=== PATIENT | male | born 1945 | race African-American/Black ===

== ENCOUNTER 2019-04-07 11:22 | Inpatient (IN) | payer OTHER, MEDICARE ==
--- NOTE | 2019-04-07 11:51 | ER Document Report ---
ED Medical Screen (RME) - General Chief Complaint: Abnormal Lab Results Stated Complaint: ABNORMAL LABS Time Seen by Provider: 04/07/19 11:49 Mode of Arrival: Ambulatory Information source: Patient Notes: Male presented to ED for abnormal lab test. He states he went to the [facility] yesterday and had blood work done and they called him this morning sent to come to the emergency room because he was in renal failure. Patient is alert and oriented respirations regular nonlabored at this time. Patient states he is having pain in the right upper quadrant. He states he is not having any difficulty urinating. He states his urine is no different in color that he states we will get blood and urine and have him evaluated by the providers. I have greeted and performed a rapid initial assessment of this patient. A comprehensive ED assessment and evaluation of the patient, analysis of test results and completion of medical decision making process will be conducted by an additional ED providers. TRAVEL OUTSIDE OF THE [place] IN LAST 30 DAYS: No - Related Data Allergies/Adverse Reactions: No Known Allergies Allergy (Verified 04/07/19 11:31) Past Medical History - Social History Chew tobacco use (# tins/day): No Frequency of alcohol use: None Drug Abuse: None Physical Exam - Vital signs Vitals: Temp Pulse Resp BP Pulse Ox 98.0 F 82 20 172/74 H 100 04/07/19 11:24 04/07/19 11:24 04/07/19 11:24 04/07/19 11:24 04/07/19 11:24 Course - Vital Signs Vital signs: Temp Pulse Resp BP Pulse Ox 98.0 F 82 20 172/74 H 100 04/07/19 11:24 04/07/19 11:24 04/07/19 11:24 04/07/19 11:24 04/07/19 11:24
[2019-04-07 12:27] LABS: ABSOLUTE BASOPHILS # (AUTO) 0.1 10^3/uL (0.0-0.2); ABSOLUTE EOSINOPHILS # (AUTO) 0.2 10^3/uL (0.0-0.6); ABSOLUTE LYMPHOCYTES (AUTO) 0.5 10^3/uL (0.5-4.7); ABSOLUTE MONOCYTES (AUTO) 0.4 10^3/uL (0.1-1.4); ABSOLUTE NEUT (AUTO) 4.2 10^3/uL (1.7-8.2); BASOPHILS % (AUTO) 1.1 % (0-2); EOSINOPHILS % (AUTO) 3.1 % (0-6); HEMATOCRIT 24.8 % (37.9-51.0); HEMOGLOBIN 8.1 g/dL (13.5-17.0); LYMPHOCYTES % (AUTO) 9.7 % (13-45); MEAN CORPUSCULAR HGB CONC 32.6 g/dL (32.0-36.0); MEAN CORPUSCULAR VOLUME 95 fl (80-97); MONOCYTES % (AUTO) 7.7 % (3-13); PLATELET COUNT 148 10^3/uL (150-450); RED BLOOD COUNT 2.61 10^6/uL (4.35-5.55); RED CELL DISTRIBUTION WIDTH 15.5 % (11.5-14.0); SEGMENTED NEUTROPHILS % (AUTO) 78.4 % (42-78); TOTAL CELLS COUNTED % (AUTO) 100 %; WHITE BLOOD COUNT 5.3 10^3/uL (4.0-10.5)
[2019-04-07 12:33] LABS: APPEARANCE,URINE CLEAR; BILIRUBIN,URINE NEGATIVE (NEGATIVE); COLOR,URINE STRAW; GLUCOSE, URINE NEGATIVE (NEGATIVE); KETONES,URINE NEGATIVE (NEGATIVE); LEUKOCYTE ESTERASE,URINE TRACE (NEGATIVE); NITRITE,URINE NEGATIVE (NEGATIVE); PROTEIN,URINE NEGATIVE (NEGATIVE); URINE SPECIFIC GRAVITY 1.008; UROBILINOGEN,URINE NEGATIVE mg/dL (<2.0)
[2019-04-07] MEDS ORDERED: NORMAL SALINE 1000 ML 1,000 ML IV ONE (12:35)
[2019-04-07 12:46] LABS: ALBUMIN 4.1 g/dL (3.5-5.0); ALKALINE PHOSPHATASE 75 U/L (38-126); ANION GAP 13 (5-19); ASPARTATE AMINO TRANSFERASE 28 U/L (17-59); BILIRUBIN,DIRECT 0.3 mg/dL (0.0-0.4); BILIRUBIN,TOTAL 0.4 mg/dL (0.2-1.3); BLOOD UREA NITROGEN 69 mg/dL (7-20); CALCIUM 8.8 mg/dL (8.4-10.2); CARBON DIOXIDE 13 mmol/L (22-30); CHLORIDE 113 mmol/L (98-107); CREATINE KINASE 91 U/L (55-170); GLUCOSE 90 mg/dL (75-110); POTASSIUM 5.8 mmol/L (3.6-5.0); TOTAL PROTEIN 7.5 g/dL (6.3-8.2)
[2019-04-07] MEDS ORDERED: LIDOCAINE 2% URO-JET 5 ML KIT MM ONE (13:00)
[2019-04-07] MEDS ORDERED: SODIUM BICARBONATE 8.4% INJ 50 MEQ/50 ML DISP.SYRIN IV ONE (14:00)
[2019-04-07] MEDS ORDERED: CALCIUM GLUCONATE 1000 MG/10 ML INJ IV ONE (14:00)
[2019-04-07] MEDS ORDERED: TAMSULOSIN HCL 0.4 MG CAP.SR.24H PO ONE (14:03)
--- NOTE | 2019-04-07 14:17 | ER Document Report ---
ED General - General Chief Complaint: Abnormal Lab Results Stated Complaint: ABNORMAL LABS Time Seen by Provider: 04/07/19 11:49 Primary Care Provider: MARJ,TABBY [Primary Care Provider] - Follow up as needed Mode of Arrival: Ambulatory Notes: 73-year-old male sent to the emergency department by the [facility] after abnormal blood work returned. Patient had routine blood work performed yesterday and he was called today and told that he was in acute renal failure and he should emergently come to the hospital. Patient denies any symptoms, states that he is been urinating without difficulty, in fact states that he has been urinating multiple times at night. When questioned about his distended abdomen he states that his abdomen has looked like this for 6 months and denies abdominal pain. Denies any history of acute renal failure, leg swelling, congestive heart failure, nausea, vomiting, diarrhea. TRAVEL OUTSIDE OF THE [place] IN LAST 30 DAYS: No - Related Data Allergies/Adverse Reactions: No Known Allergies Allergy (Verified 04/07/19 11:31) Past Medical History - General Information source: Patient - Social History Smoking Status: Current Every Day Smoker Chew tobacco use (# tins/day): No Frequency of alcohol use: None Drug Abuse: None Family History: Reviewed & Not Pertinent Patient has suicidal ideation: No Patient has homicidal ideation: No - Past Medical History Cardiac Medical History: Reports: Hx Hypercholesterolemia, Hx Hypertension Psychiatric Medical History: Reports: Hx Depression Review of Systems - Review of Systems Constitutional: No symptoms reported Gastrointestinal: See HPI Genitourinary: See HPI Hematologic/Lymphatic: See HPI -: Yes All other systems reviewed and negative Physical Exam - Vital signs Vitals: Temp Pulse Resp BP Pulse Ox 98.0 F 82 20 172/74 H 100 04/07/19 11:24 04/07/19 11:24 04/07/19 11:24 04/07/19 11:24 04/07/19 11:24 Interpretation: Hypertensive - Notes Notes: GENERAL: Alert, interacts well. No acute distress. HEAD: Normocephalic, atraumatic EYES: Pupils equal, round and reactive to light, extraocular movements intact. ENT: Oral mucosa moist, tongue midline. NECK: Full range of motion, supple, trachea midline. LUNGS: Clear to auscultation bilaterally, no wheezes, rales or rhonchi, no respiratory distress. HEART: Regular rate and rhythm, no murmurs, gallops, rubs. ABDOMEN: Firm, distended, actually appears to be approximately 6 months , bladder is distended above the level of the umbilicus, surprisingly nontender, no fluid wave, bedside ultrasound confirms that this mass is bladder, bowel sounds present in all 4 quadrants. EXTREMITIES: Moves all 4 extremities spontaneously, no edema, radial and dorsalis pedis pulses 2/4 bilaterally. No cyanosis. NEUROLOGICAL: Alert and oriented x3, normal speech, biceps and patellar DTRs 2+ bilaterally. PSYCH: Normal mood, normal affect. SKIN: Warm, Dry, normal turgor, no rashes or lesions noted. Course - Re-evaluation Re-evalutation: 04/07/19 14:17 CBC shows anemia with hemoglobin 8.1, platelets low 148, no leukocytosis, CMP shows potassium elevated at 5.3, CO2 low at 13, BUN and creatinine elevated at 69 and 7.44, lipase elevated at 485, urinalysis shows trace leukocyte esterase. Meade catheter was inserted and close to 2 L of clear yellow urine were obtained. We did have to use it daily as we did encounter some resistance trying to insert a 14 Swazi catheter. Suspect the obstruction is coming from an enlarged prostate, I have started Flomax. Suspect that this patient's renal failure is due to the urinary obstruction. I did do a bedside ultrasound that confirmed moderate to severe hydronephrosis as well. Suspect this is coming from the bladder and I suspect this is been going on for quite some time as his bladder is quite enlarged. Patient will be given bicarb and calcium to decrease his potassium. I also expect his potassium to come down as we drain his bladder and his renal function improves. Discussed the patient with Dr. Gonzalez and CONSTANCE alicia who agreed to admit the patient to their service on the telemetry care unit. Patient is aware that although he does not need dialysis right now if his function does not improve with bladder decompression as expected then he may need dialysis and may need to be transferred at some point. Patient is agreeable to admission here. 04/07/19 14:18 I am also ordering a CAT scan with oral contrast to make sure that we are not missing any obstructing tumor in the abdomen. - Vital Signs Vital signs: Temp Pulse Resp BP Pulse Ox 97.8 F 82 13 176/91 H 100 04/07/19 12:07 04/07/19 11:24 04/07/19 13:20 04/07/19 13:20 04/07/19 13:20 - Laboratory Result Diagrams: 04/07/19 12:05 04/07/19 12:05 Laboratory results interpreted by me: 04/07/19 04/07/19 04/07/19 12:05 12:05 12:20 RBC 2.61 L Hgb 8.1 L Hct 24.8 L RDW 15.5 H Plt Count 148 L Lymph % (Auto) 9.7 L Seg Neutrophils % 78.4 H Potassium 5.8 H Chloride 113 H Carbon Dioxide 13 L BUN 69 H Creatinine 7.44 H Est GFR ( Amer) 9 L Est GFR (MDRD) Non-Af 7 L Lipase 485.0 H Ur Leukocyte Esterase TRACE H - EKG Interpretation by Me Additional EKG results interpreted by me: 04/07/19 14:19 EKG shows sinus rhythm at a rate of 79, normal axis, normal intervals, no ST segment elevations or depressions, no T wave inversions however T waves are slightly peaked per my interpretation. Discharge - Discharge Clinical Impression: Acute urinary obstruction, Hyperkalemia Acute renal failure Qualifiers: Acute renal failure type: unspecified Qualified Code(s): N17.9 - Acute kidney failure, unspecified Anemia Qualifiers: Anemia type: unspecified type Qualified Code(s): D64.9 - Anemia, unspecified Condition: Good Disposition: ADMITTED INPATIENT Admitting Provider: Carlos (Hospitalist) Unit Admitted: Telemetry [facility] [[facility]] - Follow up as needed
[2019-04-07] MEDS ORDERED: ONDANSETRON 4 MG TAB.RAPDIS PO PRN (14:33)
[2019-04-07] MEDS ORDERED: ONDANSETRON HCL INJ/PF 4 MG/2 ML SDV IV PRN (14:33)
[2019-04-07] MEDS ORDERED: OXYCODONE-ACETAMINOPHEN 5-325 MG TABLET PO PRN (14:33)
[2019-04-07] MEDS ORDERED: ACETAMINOPHEN 325 MG TABLET PO PRN (14:33)
--- NOTE | 2019-04-07 14:55 | PDOC H&P ---
History of Present Illness Admission Date/PCP: [facility] 04/07/2019 History of Present Illness: YOU FOSTER JR is a 73 year old male who was admitted from the emergency room with abdominal pain for 3 to 5 months and probable bladder outlet obstruction. He states she went to the [facility] yesterday for just a routine visit, although he states for the last 3 to 5 months he said some right flank pain. States they called him today and told him to go to the emergency room because of some of his lab work according to the patient they did not mention anything yesterday during the examination. Patient states he feels like his abdomen is been swollen now for about 3 to 5 months. In the emergency room after putting a Meade catheter in place they drained 1700 cc of yellow clear urine Patient denies ever having any renal problem before today. Patient's other medical problems include hepatitis C diagnosed in 2010 and treated in 2014. Patient's only medication includes medicine for depression, Celexa.. Past Medical History Cardiac Medical History: Reports: Hyperlipidema, Hypertension Endocrine Medical History: Reports: Other - Otitis he Psychiatric Medical History: Reports: Depression Social History Smoking Status: Current Every Day Smoker Electronic Cigarette use?: No - Advance Directive Resuscitation Status: Full Code Family History Family History: Reviewed & Not Pertinent Parental Family History Reviewed: No Children Family History Reviewed: No Sibling(s) Family History Reviewed.: No Medication/Allergy Allergies/Adverse Reactions: No Known Allergies Allergy (Verified 04/07/19 11:31) Review of Systems Constitutional: ABSENT: chills, fever(s), headache(s), weight gain, weight loss Cardiovascular: ABSENT: chest pain, dyspnea on exertion, edema, orthropnea, palpitations Respiratory: ABSENT: cough, hemoptysis Gastrointestinal: PRESENT: abdominal pain Neurological: ABSENT: abnormal gait, abnormal speech, confusion, dizziness, focal weakness, syncope Psychiatric: ABSENT: anxiety, depression, homidical ideation, suicidal ideation Physical Exam Vital Signs: Temp Pulse Resp BP Pulse Ox 97.8 F 82 13 176/91 H 100 04/07/19 12:07 04/07/19 11:24 04/07/19 13:20 04/07/19 13:20 04/07/19 13:20 Intake & Output 04/06/19 04/07/19 04/08/19 06:59 06:59 06:59 Intake Total 1000 Balance 1000 Weight 70.4 kg General appearance: PRESENT: no acute distress, well-developed, well-nourished Head exam: PRESENT: atraumatic, normocephalic Respiratory exam: PRESENT: clear to auscultation sabrina. ABSENT: rales, rhonchi, wheezes Cardiovascular exam: PRESENT: RRR. ABSENT: diastolic murmur, rubs, systolic murmur GI/Abdominal exam: PRESENT: distended, firm, tenderness - Slightly tender over the suprapubic region and the right lower quadrant Patient's abdominal distention extends up to the umbilicus, other - Patient's distention extends up to the umbilicus Neurological exam: PRESENT: alert, awake, oriented to person, oriented to place, oriented to time, oriented to situation, CN II-XII grossly intact. ABSENT: motor sensory deficit Psychiatric exam: PRESENT: appropriate affect, normal mood. ABSENT: homicidal ideation, suicidal ideation Results Laboratory Results: 04/07/19 12:05 04/07/19 12:05 04/07/19 04/07/19 04/07/19 12:05 12:05 12:05 WBC 5.3 RBC 2.61 L Hgb 8.1 L Hct 24.8 L MCV 95 MCH 31.0 MCHC 32.6 RDW 15.5 H Plt Count 148 L Seg Neutrophils % 78.4 H Sodium 138.5 Potassium 5.8 H Chloride 113 H Carbon Dioxide 13 L Anion Gap 13 BUN 69 H Creatinine 7.44 H Est GFR ( Amer) 9 L Glucose 90 Calcium 8.8 Magnesium 1.6 Total Bilirubin 0.4 AST 28 Alkaline Phosphatase 75 Total Protein 7.5 Albumin 4.1 Lipase 485.0 H Urine Color Urine Appearance Urine pH Ur Specific [place] Urine Protein Urine Glucose (UA) Urine Ketones Urine Blood Urine Nitrite Ur Leukocyte Esterase Urine WBC (Auto) Urine RBC (Auto) Blood Type B POSITIVE Antibody Screen NEGATIVE 04/07/19 12:20 WBC RBC Hgb Hct MCV MCH MCHC RDW Plt Count Seg Neutrophils % Sodium Potassium Chloride Carbon Dioxide Anion Gap BUN Creatinine Est GFR ( Amer) Glucose Calcium Magnesium Total Bilirubin AST Alkaline Phosphatase Total Protein Albumin Lipase Urine Color STRAW Urine Appearance CLEAR Urine pH 6.0 Ur Specific [place] 1.008 Urine Protein NEGATIVE Urine Glucose (UA) NEGATIVE Urine Ketones NEGATIVE Urine Blood NEGATIVE Urine Nitrite NEGATIVE Ur Leukocyte Esterase TRACE H Urine WBC (Auto) 7 Urine RBC (Auto) 2 Blood Type Antibody Screen 04/07/19 04/07/19 12:05 12:05 Creatine Kinase 91 CK-MB (CK-2) 1.39 Assessment and Plan - Diagnosis (1) Hepatitis C Is this a current diagnosis for this admission?: Yes (2) Depression Is this a current diagnosis for this admission?: Yes (3) Acute renal failure Qualifiers: Acute renal failure type: unspecified Qualified Code(s): N17.9 - Acute kidney failure, unspecified Is this a current diagnosis for this admission?: Yes (4) Acute urinary obstruction Is this a current diagnosis for this admission?: Yes (5) Anemia Qualifiers: Anemia type: unspecified type Qualified Code(s): D64.9 - Anemia, unspecified Is this a current diagnosis for this admission?: Yes (6) Hyperkalemia Is this a current diagnosis for this admission?: Yes - Plan Summary Summary: 04/07/2019 Patient will leave the Meade catheter in place. Patient will receive IV fluids calcium gluconate and sodium bicarb as needed. Patient is to get a CT scan of his abdomen and pelvis with oral contrast only as ordered by the ER. Only medication that he takes appears to be Celexa 20 mg a day no previous records to compare to. - Time Time Spent with patient: 25-34 minutes
[2019-04-07 15:06] LABS: APPEARANCE,URINE CLEAR; BILIRUBIN,URINE NEGATIVE (NEGATIVE); COLOR,URINE STRAW; GLUCOSE, URINE NEGATIVE (NEGATIVE); KETONES,URINE NEGATIVE (NEGATIVE); LEUKOCYTE ESTERASE,URINE TRACE (NEGATIVE); NITRITE,URINE NEGATIVE (NEGATIVE); PROTEIN,URINE NEGATIVE (NEGATIVE); URINE SPECIFIC GRAVITY 1.006; UROBILINOGEN,URINE NEGATIVE mg/dL (<2.0)
[2019-04-07 15:09] LABS: INTERNATIONAL RATION (INR) 1.15; PROTHROMBIN TIME 14.8 SEC (11.4-15.4)
--- NOTE | 2019-04-07 17:06 | RADIOLOGY REPORT (SQ) ---
EXAM DESCRIPTION: CT ABD/PELVIS ORAL ONLY COMPLETED DATE/TIME: 04/07/2019 4:52 pm REASON FOR STUDY: RLQ pain; possible tumor obstructing ureters COMPARISON: None. TECHNIQUE: CT scan of the abdomen and pelvis performed without intravenous or oral contrast. Images reviewed with lung, soft tissue, and bone windows. Reconstructed coronal and sagittal MPR images revi ewed. All images stored on PACS. All CT scanners at this facility use dose modulation, iterative reconstruction, and/or weight based d osing when appropriate to reduce radiation dose to as low as reasonably achievable (ALARA). [facility]: Dose Right [facility]: CareDose [facility]: Dose Right [facility]: Teradose 4D [facility]: Smart Technologies RADIATION DOSE: CT Rad equipment meets quality standard of care and radiation dose reduction techniq ues were employed. CTDIvol: 4.8 mGy. DLP: 268 mGy-cm.mGy. LIMITATIONS: None. FINDINGS: LOWER CHEST: Minimal scarring left posterior costophrenic sulcus. NON-CONTRASTED LIVER, SPLEEN, ADRENALS: Evaluation limited by lack of IV contrast. No identified sign ificant masses. PANCREAS: No masses. No peripancreatic inflammatory changes. GALLBLADDER: No identified stones by CT criteria. No inflammatory changes to suggest cholecystitis. RIGHT KIDNEY AND URETER: There is massive right hydronephrosis and hydroureter down to the level of t he bladder. No significant calcifications. No right renal cysts or masses. LEFT KIDNEY AND URETER: There is massive left hydronephrosis and hydroureter down to the level of the bladder. No significant calcifications. No left renal cysts or masses. AORTA AND RETROPERITONEUM: No aneurysm. No retroperitoneal masses or adenopathy. BOWEL AND PERITONEAL CAVITY: Patient drank oral contrast. No bowel obstruction. No free intraperito david air or fluid. APPENDIX: Normal. PELVIS, BLADDER, AND ABDOMINAL WALL:Patient has a Meade catheter draining the bladder. Small amount of air in the urinary bladder. Urinary bladder is abnormal, with massive bladder wall thickening gre ater than 2 cm in thickness. This is circumferential and involves the bladder trigone. Prostate 5.5 x 4.5 x 7 cm in size. Normal size seminal vesicles. No bulky pelvic adenopathy BONES: No acute changes. Left hip lag screws for healed subcapital femoral neck fracture. OTHER: No other significant finding. IMPRESSION: Massive bladder wall thickening with massive bilateral hydronephrosis and hydroureter fr om chronic urinary outflow obstruction. Findings discussed with Dr. Ramirez in the emergency room COMMENT: Quality ID # [id number]: Final reports with documentation of one or more dose reduction techniques (e.g., Automated exposure control, adjustment of the mA and/or kV according to patient size, use of iterative reconstruction technique) TECHNICAL DOCUMENTATION: JOB ID: [id number] [employer]- All Rights Reserved Reading location - IP/workstation name: [facility]
[2019-04-07] MEDS ORDERED: ZOLPIDEM TARTRATE 5 MG TABLET PO PRN (18:50)
--- NOTE | 2019-04-07 21:50 | EKG REPORT ---
SEVERITY:- BORDERLINE ECG - SINUS RHYTHM PROBABLE LEFT ATRIAL ABNORMALITY : Confirmed by: Yue Horton MD 07-Apr-2019 21:49:32
[2019-04-07] MEDS ORDERED: FAMOTIDINE 20 MG TABLET PO SCH (22:00)
[2019-04-07] MEDS: CEFTRIAXONE 1 GM/D5W RTU 1 GM/50 ML RTUPB IV SCH (22:05)
[2019-04-07] MEDS: HEPARIN SOD (PORCINE) 5,000 UNIT/ML 1 ML VIAL SUBCUT SCH (22:07)
[2019-04-07] MEDS: NORMAL SALINE 1000 ML 1,000 ML IV PRN (22:07)
[2019-04-07] MEDS: CITALOPRAM HYDROBROMIDE 20 MG TABLET PO SCH (22:07)
[2019-04-08 04:47] LABS: ABSOLUTE EOSINOPHILS # (AUTO) 0.2 10^3/uL (0.0-0.6); ABSOLUTE LYMPHOCYTES (AUTO) 0.6 10^3/uL (0.5-4.7); ABSOLUTE MONOCYTES (AUTO) 0.5 10^3/uL (0.1-1.4); ABSOLUTE NEUT (AUTO) 4.5 10^3/uL (1.7-8.2); BASOPHILS % (AUTO) 0.5 % (0-2); HEMATOCRIT 21.8 % (37.9-51.0); LYMPHOCYTES % (AUTO) 9.9 % (13-45); MEAN CORPUSCULAR HEMOGLOBIN 31.1 pg (27.0-33.4); MEAN CORPUSCULAR HGB CONC 33.4 g/dL (32.0-36.0); MEAN CORPUSCULAR VOLUME 93 fl (80-97); MONOCYTES % (AUTO) 8.9 % (3-13); PLATELET COUNT 134 10^3/uL (150-450); RED BLOOD COUNT 2.35 10^6/uL (4.35-5.55); RED CELL DISTRIBUTION WIDTH 14.9 % (11.5-14.0); SEGMENTED NEUTROPHILS % (AUTO) 77.7 % (42-78); TOTAL CELLS COUNTED % (AUTO) 100 %; WHITE BLOOD COUNT 5.8 10^3/uL (4.0-10.5)
[2019-04-08 04:56] LABS: HEMOGLOBIN 7.3 g/dL (13.5-17.0)
[2019-04-08 05:05] LABS: ANION GAP 10 (5-19); BLOOD UREA NITROGEN 67 mg/dL (7-20); CALCIUM 8.3 mg/dL (8.4-10.2); CARBON DIOXIDE 13 mmol/L (22-30); CHLORIDE 118 mmol/L (98-107); GLUCOSE 91 mg/dL (75-110); POTASSIUM 5.6 mmol/L (3.6-5.0)
[2019-04-08] MEDS: HEPARIN SOD (PORCINE) 5,000 UNIT/ML 1 ML VIAL SUBCUT SCH ×3 (05:26→21:03)
[2019-04-08] MEDS: NORMAL SALINE 1000 ML 1,000 ML IV PRN ×3 (05:31→21:09)
[2019-04-08] MEDS ORDERED: INFLUENZA QUAD (6MOS+) 2019-20 VAC 0.5 ML SYR IM ONE (08:00)
--- NOTE | 2019-04-08 10:54 | PDOC PROGRESS REPORT ---
Subjective Progress Note for:: 04/08/19 Subjective:: 04/08/2019 patient is feeling much better having almost no abdominal pain. Doing bladder irrigation every 4 hours, urine blood-tinged but no clots Reason For Visit: URINARY OBSTRUCTION, DEPRESSION, ABDOMINAL PAIN Physical Exam Vital Signs: Temp Pulse Resp BP Pulse Ox 97.8 F 76 13 176/91 H 100 04/07/19 12:07 04/08/19 07:00 04/07/19 13:20 04/07/19 13:20 04/07/19 13:20 Intake & Output 04/07/19 04/08/19 04/09/19 06:59 06:59 06:59 Intake Total 2350 Output Total 1250 Balance 1100 Weight 67.8 kg General appearance: PRESENT: no acute distress Respiratory exam: PRESENT: clear to auscultation sabrina. ABSENT: rales, rhonchi, wheezes Cardiovascular exam: PRESENT: RRR. ABSENT: diastolic murmur, rubs, systolic murmur GI/Abdominal exam: PRESENT: normal bowel sounds, soft, other - No tenderness to palpation at all. ABSENT: distended, guarding, mass, organolmegaly, rebound, tenderness Neurological exam: PRESENT: alert, awake, oriented to person, oriented to place, oriented to time, oriented to situation, CN II-XII grossly intact. ABSENT: motor sensory deficit Psychiatric exam: PRESENT: appropriate affect, normal mood. ABSENT: homicidal ideation, suicidal ideation Results Laboratory Results: 04/08/19 03:56 04/08/19 03:56 04/07/19 04/07/19 04/07/19 12:05 12:05 12:05 WBC 5.3 RBC 2.61 L Hgb 8.1 L Hct 24.8 L MCV 95 MCH 31.0 MCHC 32.6 RDW 15.5 H Plt Count 148 L Seg Neutrophils % 78.4 H Sodium 138.5 Potassium 5.8 H Chloride 113 H Carbon Dioxide 13 L Anion Gap 13 BUN 69 H Creatinine 7.44 H Est GFR ( Amer) 9 L Glucose 90 Calcium 8.8 Magnesium 1.6 Total Bilirubin 0.4 AST 28 Alkaline Phosphatase 75 Total Protein 7.5 Albumin 4.1 Lipase 485.0 H Urine Color Urine Appearance Urine pH Ur Specific [place] Urine Protein Urine Glucose (UA) Urine Ketones Urine Blood Urine Nitrite Ur Leukocyte Esterase Urine WBC (Auto) Urine RBC (Auto) Blood Type B POSITIVE Antibody Screen NEGATIVE 04/07/19 04/07/19 04/08/19 12:20 14:40 03:56 WBC 5.8 RBC 2.35 L Hgb 7.3 L Hct 21.8 L MCV 93 MCH 31.1 MCHC 33.4 RDW 14.9 H Plt Count 134 L Seg Neutrophils % 77.7 Sodium Potassium Chloride Carbon Dioxide Anion Gap BUN Creatinine Est GFR ( Amer) Glucose Calcium Magnesium Total Bilirubin AST Alkaline Phosphatase Total Protein Albumin Lipase Urine Color STRAW STRAW Urine Appearance CLEAR CLEAR Urine pH 6.0 6.0 Ur Specific [place] 1.008 1.006 Urine Protein NEGATIVE NEGATIVE Urine Glucose (UA) NEGATIVE NEGATIVE Urine Ketones NEGATIVE NEGATIVE Urine Blood NEGATIVE SMALL H Urine Nitrite NEGATIVE NEGATIVE Ur Leukocyte Esterase TRACE H TRACE H Urine WBC (Auto) 7 7 Urine RBC (Auto) 2 2 Blood Type Antibody Screen 04/08/19 03:56 WBC RBC Hgb Hct MCV MCH MCHC RDW Plt Count Seg Neutrophils % Sodium 140.5 Potassium 5.6 H Chloride 118 H Carbon Dioxide 13 L Anion Gap 10 BUN 67 H Creatinine 6.84 H Est GFR ( Amer) 10 L Glucose 91 Calcium 8.3 L Magnesium Total Bilirubin AST Alkaline Phosphatase Total Protein Albumin Lipase Urine Color Urine Appearance Urine pH Ur Specific [place] Urine Protein Urine Glucose (UA) Urine Ketones Urine Blood Urine Nitrite Ur Leukocyte Esterase Urine WBC (Auto) Urine RBC (Auto) Blood Type Antibody Screen 04/07/19 04/07/19 12:05 12:05 Creatine Kinase 91 CK-MB (CK-2) 1.39 Assessment and Plan - Diagnosis (1) Hepatitis C Is this a current diagnosis for this admission?: Yes (2) Depression Is this a current diagnosis for this admission?: Yes (3) Acute renal failure Qualifiers: Acute renal failure type: unspecified Qualified Code(s): N17.9 - Acute kidney failure, unspecified Is this a current diagnosis for this admission?: Yes (4) Acute urinary obstruction Is this a current diagnosis for this admission?: Yes (5) Anemia Qualifiers: Anemia type: unspecified type Qualified Code(s): D64.9 - Anemia, unspecified Is this a current diagnosis for this admission?: Yes (6) Hyperkalemia Is this a current diagnosis for this admission?: Yes - Plan Summary Summary: 04/07/2019 Patient will leave the Meade catheter in place. Patient will receive IV fluids calcium gluconate and sodium bicarb as needed. Patient is to get a CT scan of his abdomen and pelvis with oral contrast only as ordered by the ER. Only medication that he takes appears to be Celexa 20 mg a day no previous records to compare to. 04/08/2019 intake yesterday 2350 output 1250, however patient did have she will 1700 out yesterday after the Meade catheter was inserted, therefore output should be 2950 Weight on admission was 70.4 kg today it is 67.8 CBC shows a hemoglobin on admission 8.1 today 7.3 patient is not symptomatic. BUN and creatinine are basically the same although creatinine is slightly improved now down to 6.84 Patient getting normal saline at 150 an hour Patient will get a bladder scan every 4 hours prior to bladder irrigation - Time Time Spent with patient: 25-34 minutes
[2019-04-08] MEDS: CEFTRIAXONE 1 GM/D5W RTU 1 GM/50 ML RTUPB IV SCH (17:07)
[2019-04-08 19:07] LABS: ANION GAP 10 (5-19); BLOOD UREA NITROGEN 61 mg/dL (7-20); CALCIUM 7.8 mg/dL (8.4-10.2); CARBON DIOXIDE 14 mmol/L (22-30); CHLORIDE 113 mmol/L (98-107); GLUCOSE 115 mg/dL (75-110)
[2019-04-08] MEDS: CITALOPRAM HYDROBROMIDE 20 MG TABLET PO SCH (21:06)
[2019-04-09] MEDS: HEPARIN SOD (PORCINE) 5,000 UNIT/ML 1 ML VIAL SUBCUT SCH ×3 (05:05→21:06)
[2019-04-09] MEDS: NORMAL SALINE 1000 ML 1,000 ML IV PRN ×2 (06:38→15:11)
--- NOTE | 2019-04-09 12:03 | PDOC PROGRESS REPORT ---
Subjective Progress Note for:: 04/09/19 Subjective:: 04/08/2019 patient is feeling much better having almost no abdominal pain. Doing bladder irrigation every 4 hours, urine blood-tinged but no clots 04/09/2019 patient's renal function is improving with IV fluids and a Meade catheter Continue IV fluids, DC bladder irrigation every 4 hours and DC bladder scan Reason For Visit: URINARY OBSTRUCTION, DEPRESSION, ABDOMINAL PAIN Physical Exam Vital Signs: Temp Pulse Resp BP Pulse Ox 98.1 F 88 18 123/60 100 04/09/19 08:00 04/09/19 08:00 04/09/19 08:00 04/09/19 08:00 04/09/19 08:00 Intake & Output 04/08/19 04/09/19 04/10/19 06:59 06:59 06:59 Intake Total 2350 5594 Output Total 1250 4250 Balance 1100 1344 Weight 67.8 kg 70 kg General appearance: PRESENT: no acute distress Respiratory exam: PRESENT: clear to auscultation sabrina. ABSENT: rales, rhonchi, wheezes Cardiovascular exam: PRESENT: RRR. ABSENT: diastolic murmur, rubs, systolic murmur GI/Abdominal exam: PRESENT: normal bowel sounds, soft. ABSENT: distended, guarding, mass, organolmegaly, rebound, tenderness Gentrourinary exam: PRESENT: other - Catheter draining pink-colored urine no large clots Neurological exam: PRESENT: alert, awake, oriented to person, oriented to place, oriented to time, oriented to situation, CN II-XII grossly intact. ABSENT: motor sensory deficit Psychiatric exam: PRESENT: appropriate affect, normal mood, other - Patient pleasant and appreciative of his care. ABSENT: homicidal ideation, suicidal ideation Results Laboratory Results: 04/08/19 03:56 04/08/19 18:21 04/08/19 18:21 Sodium 136.9 L Potassium 5.0 Chloride 113 H Carbon Dioxide 14 L Anion Gap 10 BUN 61 H Creatinine 5.82 H Est GFR ( Amer) 12 L Glucose 115 H Calcium 7.8 L 04/07/19 04/07/19 12:05 12:05 Creatine Kinase 91 CK-MB (CK-2) 1.39 Assessment and Plan - Diagnosis (1) Hepatitis C Is this a current diagnosis for this admission?: Yes (2) Depression Is this a current diagnosis for this admission?: Yes (3) Acute renal failure Qualifiers: Acute renal failure type: unspecified Qualified Code(s): N17.9 - Acute kidney failure, unspecified Is this a current diagnosis for this admission?: Yes (4) Acute urinary obstruction Is this a current diagnosis for this admission?: Yes (5) Anemia Qualifiers: Anemia type: unspecified type Qualified Code(s): D64.9 - Anemia, unspecified Is this a current diagnosis for this admission?: Yes (6) Hyperkalemia Is this a current diagnosis for this admission?: Yes - Plan Summary Summary: 04/07/2019 Patient will leave the Meade catheter in place. Patient will receive IV fluids calcium gluconate and sodium bicarb as needed. Patient is to get a CT scan of his abdomen and pelvis with oral contrast only as ordered by the ER. Only medication that he takes appears to be Celexa 20 mg a day no previous records to compare to. 04/08/2019 intake yesterday 2350 output 1250, however patient did have she will 1700 out yesterday after the Meade catheter was inserted, therefore output should be 2950 Weight on admission was 70.4 kg today it is 67.8 CBC shows a hemoglobin on admission 8.1 today 7.3 patient is not symptomatic. BUN and creatinine are basically the same although creatinine is slightly improved now down to 6.84 Patient getting normal saline at 150 an hour Patient will get a bladder scan every 4 hours prior to bladder irrigation 04/09/2019 I discussed this briefly with nephrology. he is improving with IV fluids renal functions are improving, DC with Meade catheter [facility] he can set up an appointment with a urologist as an outpatient. Continue IV fluids for the next 24 to 48 hours. - Time Time Spent with patient: 25-34 minutes
[2019-04-09] MEDS: CEFTRIAXONE 1 GM/D5W RTU 1 GM/50 ML RTUPB IV SCH (18:11)
[2019-04-09 19:45] LABS: ABSOLUTE EOSINOPHILS # (AUTO) 0.2 10^3/uL (0.0-0.6); ABSOLUTE LYMPHOCYTES (AUTO) 0.6 10^3/uL (0.5-4.7); ABSOLUTE MONOCYTES (AUTO) 0.6 10^3/uL (0.1-1.4); ABSOLUTE NEUT (AUTO) 3.7 10^3/uL (1.7-8.2); BASOPHILS % (AUTO) 0.5 % (0-2); EOSINOPHILS % (AUTO) 3.5 % (0-6); HEMATOCRIT 19.5 % (37.9-51.0); MEAN CORPUSCULAR HEMOGLOBIN 31.1 pg (27.0-33.4); MEAN CORPUSCULAR HGB CONC 33.7 g/dL (32.0-36.0); MEAN CORPUSCULAR VOLUME 92 fl (80-97); MONOCYTES % (AUTO) 11.2 % (3-13); PLATELET COUNT 120 10^3/uL (150-450); RED BLOOD COUNT 2.11 10^6/uL (4.35-5.55); RED CELL DISTRIBUTION WIDTH 14.9 % (11.5-14.0); SEGMENTED NEUTROPHILS % (AUTO) 72.8 % (42-78); TOTAL CELLS COUNTED % (AUTO) 100 %; WHITE BLOOD COUNT 5.1 10^3/uL (4.0-10.5)
[2019-04-09 19:48] LABS: HEMOGLOBIN 6.6 g/dL (13.5-17.0)
[2019-04-09 20:03] LABS: ANION GAP 9 (5-19); BLOOD UREA NITROGEN 58 mg/dL (7-20); CALCIUM 7.5 mg/dL (8.4-10.2); CARBON DIOXIDE 14 mmol/L (22-30); CHLORIDE 114 mmol/L (98-107); GLUCOSE 102 mg/dL (75-110); POTASSIUM 5.3 mmol/L (3.6-5.0)
[2019-04-09] MEDS ORDERED: DIPHENHYDRAMINE HCL 50 MG/ML VIAL IV ONE (20:15)
[2019-04-09] MEDS ORDERED: ACETAMINOPHEN 325 MG TABLET PO ONE (20:15)
[2019-04-09] MEDS: CITALOPRAM HYDROBROMIDE 20 MG TABLET PO SCH (21:15)
[2019-04-10] MEDS: HEPARIN SOD (PORCINE) 5,000 UNIT/ML 1 ML VIAL SUBCUT SCH ×3 (05:17→21:20)
[2019-04-10 06:31] LABS: ABSOLUTE EOSINOPHILS # (AUTO) 0.2 10^3/uL (0.0-0.6); ABSOLUTE LYMPHOCYTES (AUTO) 0.7 10^3/uL (0.5-4.7); ABSOLUTE MONOCYTES (AUTO) 0.5 10^3/uL (0.1-1.4); ABSOLUTE NEUT (AUTO) 3.5 10^3/uL (1.7-8.2); EOSINOPHILS % (AUTO) 3.6 % (0-6); HEMATOCRIT 22.9 % (37.9-51.0); LYMPHOCYTES % (AUTO) 13.4 % (13-45); MEAN CORPUSCULAR HEMOGLOBIN 30.5 pg (27.0-33.4); MEAN CORPUSCULAR HGB CONC 33.7 g/dL (32.0-36.0); MEAN CORPUSCULAR VOLUME 90 fl (80-97); MONOCYTES % (AUTO) 10.2 % (3-13); PLATELET COUNT 112 10^3/uL (150-450); RED BLOOD COUNT 2.53 10^6/uL (4.35-5.55); RED CELL DISTRIBUTION WIDTH 15.2 % (11.5-14.0); SEGMENTED NEUTROPHILS % (AUTO) 71.8 % (42-78); TOTAL CELLS COUNTED % (AUTO) 100 %; WHITE BLOOD COUNT 4.9 10^3/uL (4.0-10.5)
[2019-04-10 06:45] LABS: HEMOGLOBIN 7.7 g/dL (13.5-17.0)
[2019-04-10 06:55] LABS: ANION GAP 7 (5-19); BLOOD UREA NITROGEN 56 mg/dL (7-20); CALCIUM 7.9 mg/dL (8.4-10.2); CARBON DIOXIDE 15 mmol/L (22-30); CHLORIDE 116 mmol/L (98-107); GLUCOSE 88 mg/dL (75-110); POTASSIUM 5.5 mmol/L (3.6-5.0)
[2019-04-10] MEDS: NORMAL SALINE 1000 ML 1,000 ML IV PRN ×2 (06:55→18:36)
--- NOTE | 2019-04-10 11:41 | PDOC PROGRESS REPORT ---
Subjective Progress Note for:: 04/10/19 Subjective:: 04/08/2019 patient is feeling much better having almost no abdominal pain. Doing bladder irrigation every 4 hours, urine blood-tinged but no clots 04/09/2019 patient's renal function is improving with IV fluids and a Meade catheter Continue IV fluids, DC bladder irrigation every 4 hours and DC bladder scan 04/10/2019 Patient has no complaints and is feeling well. Consult physical therapy today for assistance with gait and strengthening. Meade catheter continues to drain blood-tinged fluid, however no clots. Discharge possibly tomorrow Reason For Visit: URINARY OBSTRUCTION, DEPRESSION, ABDOMINAL PAIN Physical Exam Vital Signs: Temp Pulse Resp BP Pulse Ox 98.3 F 66 16 132/72 H 100 04/10/19 03:29 04/10/19 07:00 04/10/19 03:29 04/10/19 03:29 04/10/19 03:29 Intake & Output 04/09/19 04/10/19 04/11/19 06:59 06:59 06:59 Intake Total 5594 3172 420 Output Total 4250 4225 Balance 1344 -1053 420 Weight 70 kg 71 kg Results Laboratory Results: 04/10/19 06:14 04/10/19 06:14 04/07/19 04/09/19 04/09/19 12:05 19:20 19:20 WBC 5.1 RBC 2.11 L Hgb 6.6 L Hct 19.5 L MCV 92 MCH 31.1 MCHC 33.7 RDW 14.9 H Plt Count 120 L Seg Neutrophils % 72.8 Sodium 137.4 Potassium 5.3 H Chloride 114 H Carbon Dioxide 14 L Anion Gap 9 BUN 58 H Creatinine 5.06 H Est GFR ( Amer) 14 L Glucose 102 Calcium 7.5 L Blood Type B POSITIVE Antibody Screen NEGATIVE 04/10/19 04/10/19 06:14 06:14 WBC 4.9 RBC 2.53 L Hgb 7.7 L Hct 22.9 L MCV 90 MCH 30.5 MCHC 33.7 RDW 15.2 H Plt Count 112 L Seg Neutrophils % 71.8 Sodium 138.2 Potassium 5.5 H Chloride 116 H Carbon Dioxide 15 L Anion Gap 7 BUN 56 H Creatinine 5.03 H Est GFR ( Amer) 14 L Glucose 88 Calcium 7.9 L Blood Type Antibody Screen 04/07/19 04/07/19 12:05 12:05 Creatine Kinase 91 CK-MB (CK-2) 1.39 Assessment and Plan - Diagnosis (1) Hepatitis C Is this a current diagnosis for this admission?: Yes (2) Depression Is this a current diagnosis for this admission?: Yes (3) Acute renal failure Qualifiers: Acute renal failure type: unspecified Qualified Code(s): N17.9 - Acute kidney failure, unspecified Is this a current diagnosis for this admission?: Yes (4) Acute urinary obstruction Is this a current diagnosis for this admission?: Yes (5) Anemia Qualifiers: Anemia type: unspecified type Qualified Code(s): D64.9 - Anemia, unspecified Is this a current diagnosis for this admission?: Yes (6) Hyperkalemia Is this a current diagnosis for this admission?: Yes - Plan Summary Summary: 04/07/2019 Patient will leave the Meade catheter in place. Patient will receive IV fluids calcium gluconate and sodium bicarb as needed. Patient is to get a CT scan of his abdomen and pelvis with oral contrast only as ordered by the ER. Only medication that he takes appears to be Celexa 20 mg a day no previous records to compare to. 04/08/2019 intake yesterday 2350 output 1250, however patient did have she will 1700 out yesterday after the Meade catheter was inserted, therefore output should be 2950 Weight on admission was 70.4 kg today it is 67.8 CBC shows a hemoglobin on admission 8.1 today 7.3 patient is not symptomatic. BUN and creatinine are basically the same although creatinine is slightly improved now down to 6.84 Patient getting normal saline at 150 an hour Patient will get a bladder scan every 4 hours prior to bladder irrigation 04/09/2019 I discussed this briefly with nephrology. he is improving with IV fluids renal functions are improving, DC with Meade catheter back to the [place] [facility] he can set up an appointment with a urologist as an outpatient. Continue IV fluids for the next 24 to 48 hours. 04/10/2019 to discharge tomorrow. Yesterday hemoglobin was 6.6 today it is 7.7, this appears to be his baseline. His potassium remains slightly high and I am going to treat him today with some Kayexalate x1 day. Probably based on chronic kidney disease, which is improving with IV fluids. 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 This will need to be done as an outpatient through the [place] clinic. - Time Time Spent with patient: 25-34 minutes
[2019-04-10] MEDS: SODIUM POLYSTYRENE SULFONATE 15 GM/60 ML PO SCH ×2 (12:53→21:31)
[2019-04-10] MEDS: CEFTRIAXONE 1 GM/D5W RTU 1 GM/50 ML RTUPB IV SCH (17:04)
[2019-04-10] MEDS: CITALOPRAM HYDROBROMIDE 20 MG TABLET PO SCH (21:30)
[2019-04-11] MEDS: HEPARIN SOD (PORCINE) 5,000 UNIT/ML 1 ML VIAL SUBCUT SCH (05:52)
[2019-04-11 08:26] LABS: ABSOLUTE EOSINOPHILS # (AUTO) 0.2 10^3/uL (0.0-0.6); ABSOLUTE LYMPHOCYTES (AUTO) 0.5 10^3/uL (0.5-4.7); ABSOLUTE MONOCYTES (AUTO) 0.4 10^3/uL (0.1-1.4); ABSOLUTE NEUT (AUTO) 3.9 10^3/uL (1.7-8.2); BASOPHILS % (AUTO) 0.9 % (0-2); EOSINOPHILS % (AUTO) 4.8 % (0-6); HEMATOCRIT 25.2 % (37.9-51.0); HEMOGLOBIN 8.5 g/dL (13.5-17.0); LYMPHOCYTES % (AUTO) 9.2 % (13-45); MEAN CORPUSCULAR HEMOGLOBIN 30.8 pg (27.0-33.4); MEAN CORPUSCULAR HGB CONC 33.7 g/dL (32.0-36.0); MEAN CORPUSCULAR VOLUME 92 fl (80-97); MONOCYTES % (AUTO) 8.5 % (3-13); PLATELET COUNT 125 10^3/uL (150-450); RED BLOOD COUNT 2.75 10^6/uL (4.35-5.55); RED CELL DISTRIBUTION WIDTH 15.3 % (11.5-14.0); SEGMENTED NEUTROPHILS % (AUTO) 76.6 % (42-78); TOTAL CELLS COUNTED % (AUTO) 100 %; WHITE BLOOD COUNT 5.1 10^3/uL (4.0-10.5)
[2019-04-11 09:04] LABS: ANION GAP 11 (5-19); BLOOD UREA NITROGEN 50 mg/dL (7-20); CALCIUM 7.8 mg/dL (8.4-10.2); CARBON DIOXIDE 16 mmol/L (22-30); CHLORIDE 114 mmol/L (98-107); GLUCOSE 87 mg/dL (75-110); POTASSIUM 4.9 mmol/L (3.6-5.0)
[2019-04-11] MEDS: SODIUM POLYSTYRENE SULFONATE 15 GM/60 ML PO SCH (09:26)
[2019-04-11 11:32] VITALS: BP 141/66
--- NOTE | 2019-04-11 17:18 | PDOC DISCHARGE SUMMARY ---
Impression - Admit/DC Date/PCP Admission Date/Primary Care Provider: 04/07/19 14:[facility] Discharge Date: 04/11/19 - Discharge Diagnosis (1) Hepatitis C Is this a current diagnosis for this admission?: Yes (2) Depression Is this a current diagnosis for this admission?: Yes (3) Acute renal failure Is this a current diagnosis for this admission?: Yes (4) Acute urinary obstruction Is this a current diagnosis for this admission?: Yes (5) Anemia Is this a current diagnosis for this admission?: Yes (6) Hyperkalemia Is this a current diagnosis for this admission?: Yes - Assessment Summary: 04/07/2019 Patient will leave the Meade catheter in place. Patient will receive IV fluids calcium gluconate and sodium bicarb as needed. Patient is to get a CT scan of his abdomen and pelvis with oral contrast only as ordered by the ER. Only medication that he takes appears to be Celexa 20 mg a day no previous records to compare to. 04/08/2019 intake yesterday 2350 output 1250, however patient did have she will 1700 out yesterday after the Meade catheter was inserted, therefore output should be 2950 Weight on admission was 70.4 kg today it is 67.8 CBC shows a hemoglobin on admission 8.1 today 7.3 patient is not symptomatic. BUN and creatinine are basically the same although creatinine is slightly improved now down to 6.84 Patient getting normal saline at 150 an hour Patient will get a bladder scan every 4 hours prior to bladder irrigation 04/09/2019 I discussed this briefly with nephrology. he is improving with IV fluids renal functions are improving, DC with Meade catheter back to the [place] clinic he can set up an appointment with a urologist as an outpatient. Continue IV fluids for the next 24 to 48 hours. 04/10/2019 to discharge tomorrow. Yesterday hemoglobin was 6.6 today it is 7.7, this appears to be his baseline. His potassium remains slightly high and I am going to treat him today with some Kayexalate x1 day. Probably based on chronic kidney disease, which is improving with IV fluids. 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 This will need to be done as an outpatient through the [place] clinic. 04/11/2019 Discharge today with a Meade catheter in place leg bag.. Sent out on Bactrim DS 1 tablet daily. An appointment was made for him at the [place] clinic who are read originally referred him to the ED. she will need to see a urologist about his bladder obstruction. She will also need to see a development director about his renal disease secondary to his bladder obstruction.. he was in no pain at the time of discharge. His Meade was draining blood-tinged urine but no clots. Was satisfied with his care here in the hospital Today's labs showed a sodium of 140 potassium 4.9 BUN of 50 creatinine 4.28 GFR 17 Seen above these numbers are greatly improved from his admission numbers. Patient improved with IV fluids and a Meade catheter being placed in the ED. Patient is medically stable at the time of discharge - Additional Information Resuscitation Status: Full Code Discharge Diet: As Tolerated Discharge Activity: Balance Activity w/Rest Referrals: [facility] [Primary Care Provider] - 04/14/19 10:00 am Prescriptions: Sulfamethoxazole/Trimethoprim [Bactrim Ds Tablet] 1 each PO DAILY #30 tablet Oxycodone HCl/Acetaminophen [Percocet 5-325 mg Tablet] 1 tab PO Q6HP PRN #10 tablet PRN Reason: Ondansetron [Zofran Odt 4 mg Tablet] 4 mg PO Q8HP PRN #10 tab.rapdis PRN Reason: Home Medications: Citalopram Hydrobromide [Celexa 40 mg Tablet] 20 mg PO DAILY 04/07/19 Citalopram Hydrobromide [Celexa 20 mg Tablet] 20 mg PO QHS tablet 04/11/19 Ondansetron [Zofran Odt 4 mg Tablet] 4 mg PO Q8HP PRN #10 tab.rapdis 04/11/19 Oxycodone HCl/Acetaminophen [Percocet 5-325 mg Tablet] 1 tab PO Q6HP PRN #10 tablet 04/11/19 Sulfamethoxazole/Trimethoprim [Bactrim Ds Tablet] 1 each PO DAILY #30 tablet 04/11/19 History of Present Illiness History of Present Illness: YOU FOSTER JR is a 73 year old male who was admitted from the emergency room with abdominal pain for 3 to 5 months and probable bladder outlet obstruction. He states she went to the [place] clinic yesterday for just a routine visit, although he states for the last 3 to 5 months he said some right flank pain. States they called him today and told him to go to the emergency room because of some of his lab work according to the patient they did not mention anything yesterday during the examination. Patient states he feels like his abdomen is been swollen now for about 3 to 5 months. In the emergency room after putting a Meade catheter in place they drained 1700 cc of yellow clear urine Patient denies ever having any renal problem before today. Patient's other medical problems include hepatitis C diagnosed in 2010 and treated in 2014. Patient's only medication includes medicine for depression, Celexa.. Physical Exam Vital Signs: Temp Pulse Resp BP Pulse Ox 97.6 F 81 18 141/66 H 100 04/11/19 11:28 04/11/19 11:28 04/11/19 11:28 04/11/19 11:28 04/11/19 11:28 Intake & Output 04/10/19 04/11/19 04/12/19 06:59 06:59 06:59 Intake Total 3172 3216 1000 Output Total 4225 4550 Balance -1053 -1334 1000 Weight 71 kg 69.7 kg Results Laboratory Results: WBC 5.1 10^3/uL (4.0-10.5) 04/11/19 07:27 RBC 2.75 10^6/uL (4.35-5.55) L 04/11/19 07:27 Hgb 8.5 g/dL (13.5-17.0) L 04/11/19 07:27 Hct 25.2 % (37.9-51.0) L 04/11/19 07:27 MCV 92 fl (80-97) 04/11/19 07:27 MCH 30.8 pg (27.0-33.4) 04/11/19 07:27 MCHC 33.7 g/dL (32.0-36.0) 04/11/19 07:27 RDW 15.3 % (11.5-14.0) H 04/11/19 07:27 Plt Count 125 10^3/uL (150-450) L 04/11/19 07:27 Lymph % (Auto) 9.2 % (13-45) L 04/11/19 07:27 [place] % (Auto) 8.5 % (3-13) 04/11/19 07:27 Eos % (Auto) 4.8 % (0-6) 04/11/19 07:27 Baso % (Auto) 0.9 % (0-2) 04/11/19 07:27 Absolute Neuts (auto) 3.9 10^3/uL (1.7-8.2) 04/11/19 07:27 Absolute Lymphs (auto) 0.5 10^3/uL (0.5-4.7) 04/11/19 07:27 Absolute Monos (auto) 0.4 10^3/uL (0.1-1.4) 04/11/19 07:27 Absolute Eos (auto) 0.2 10^3/uL (0.0-0.6) 04/11/19 07:27 Absolute Basos (auto) 0.0 10^3/uL (0.0-0.2) 04/11/19 07:27 Seg Neutrophils % 76.6 % (42-78) 04/11/19 07:27 PT 14.8 SEC (11.4-15.4) 04/07/19 12:05 INR 1.15 04/07/19 12:05 APTT 31.6 SEC (23.5-35.8) 04/08/19 03:56 Sodium 140.5 mmol/L (137-145) 04/11/19 07:27 Potassium 4.9 mmol/L (3.6-5.0) 04/11/19 07:27 Chloride 114 mmol/L (98-107) H 04/11/19 07:27 Carbon Dioxide 16 mmol/L (22-30) L 04/11/19 07:27 Anion Gap 11 (5-19) 04/11/19 07:27 BUN 50 mg/dL (7-20) H 04/11/19 07:27 Creatinine 4.28 mg/dL (0.52-1.25) H 04/11/19 07:27 Est GFR ( Amer) 17 (>60) L 04/11/19 07:27 Est GFR (MDRD) Non-Af 14 (>60) L 04/11/19 07:27 Glucose 87 mg/dL (75-110) 04/11/19 07:27 Calcium 7.8 mg/dL (8.4-10.2) L 04/11/19 07:27 Magnesium 1.6 mg/dL (1.6-2.3) 04/07/19 12:05 Total Bilirubin 0.4 mg/dL (0.2-1.3) 04/07/19 12:05 Direct Bilirubin 0.3 mg/dL (0.0-0.4) 04/07/19 12:05 Neonat Total Bilirubin Not Reportable 04/07/19 12:05 Neonat Direct Bilirubin Not Reportable 04/07/19 12:05 Neonat Indirect Bili Not Reportable 04/07/19 12:05 AST 28 U/L (17-59) 04/07/19 12:05 ALT 30 U/L (<50) 04/07/19 12:05 Alkaline Phosphatase 75 U/L (38-126) 04/07/19 12:05 Creatine Kinase 91 U/L (55-170) 04/07/19 12:05 CK-MB (CK-2) 1.39 ng/mL (<4.55) 04/07/19 12:05 Total Protein 7.5 g/dL (6.3-8.2) 04/07/19 12:05 Albumin 4.1 g/dL (3.5-5.0) 04/07/19 12:05 Lipase 485.0 U/L (23-300) H 04/07/19 12:05 Urine Color STRAW 04/07/19 14:40 Urine Appearance CLEAR 04/07/19 14:40 Urine pH 6.0 (5.0-9.0) 04/07/19 14:40 Ur Specific [place] 1.006 04/07/19 14:40 Urine Protein NEGATIVE mg/dL (NEGATIVE) 04/07/19 14:40 Urine Glucose (UA) NEGATIVE mg/dL (NEGATIVE) 04/07/19 14:40 Urine Ketones NEGATIVE mg/dL (NEGATIVE) 04/07/19 14:40 Urine Blood SMALL (NEGATIVE) H 04/07/19 14:40 Urine Nitrite NEGATIVE (NEGATIVE) 04/07/19 14:40 Urine Bilirubin NEGATIVE (NEGATIVE) 04/07/19 14:40 Urine Urobilinogen NEGATIVE mg/dL (<2.0) 04/07/19 14:40 Ur Leukocyte Esterase TRACE (NEGATIVE) H 04/07/19 14:40 Urine WBC (Auto) 7 /HPF 04/07/19 14:40 Urine RBC (Auto) 2 /HPF 04/07/19 14:40 Urine Bacteria (Auto) TRACE /HPF 04/07/19 14:40 Squamous Epi Cells Auto <1 /HPF 04/07/19 12:20 Urine Mucus (Auto) RARE /LPF 04/07/19 14:40 Urine Ascorbic Acid NEGATIVE (NEGATIVE) 04/07/19 14:40 Blood Type B POSITIVE 04/07/19 12:05 Blood Type Confirm B POSITIVE 04/09/19 20:30 Antibody Screen NEGATIVE 04/07/19 12:05 Crossmatch See Detail 04/07/19 12:05 04/07/19 12:05 CK-MB (CK-2) 1.39 Impressions: Abdomen/Pelvis CT 04/07/19 00:00 IMPRESSION: Massive bladder wall thickening with massive bilateral hydronephrosis and hydroureter from chronic urinary outflow obstruction. Findings discussed with Dr. Ramirez in the emergency room Stroke Is this a Stroke Patient?: No Acute Heart Failure - Is this a Heart Failure Patient?: No
== END 2019-04-11 13:42 | disposition home or self-care (01) | DRG 699 ==
LOC: ER 11:22 → EH 14:42 → 4S 16:56
PROVIDERS: ADMIT Internal Medicine; ATTEND Internal Medicine
PROC: 30233N1 Transfusion of Nonautologous Red Blood Cells into Peripheral Vein, Percutaneous Approach (ICD-10-PCS; principal; 2019-04-09)
DX: N13.9 Obstructive and reflux uropathy, unspecified (principal); N17.9 Acute kidney failure, unspecified; B19.20 Unspecified viral hepatitis C without hepatic coma; F32.9 Major depressive disorder, single episode, unspecified; D64.9 Anemia, unspecified; E87.5 Hyperkalemia; I10 Essential (primary) hypertension; E78.5 Hyperlipidemia, unspecified; E78.00 Pure hypercholesterolemia, unspecified; F17.210 Nicotine dependence, cigarettes, uncomplicated; Z79.899 Other long term (current) drug therapy
CPT/HCPCS: 36415; 36430; 51702; 74176; 80048; 80053; 81001; 82550; 82553; 83690; 83735; 85025; 85610; 85730; 86850; 86900; 86901; 86920; 93005; 93010; 96361; 96374; 99285; C1758; J0610; J0696; J1200; J3490; J7030; P9016